=== PATIENT | male | born 1935 | race Caucasian/White ===

== ENCOUNTER 2016-11-14 09:12 | Inpatient (IN) | payer MEDICARE ==
--- NOTE | ~2016-11-14 | DS ---
Discharge Summary [facility] [address] [facility] [place]. [address] NAME: SHAHZAD PARRISH : 33 STATUS : DIS IN PAT#: [id number] AGE: 81 ADM/REG DATE : 11/14/16 MR#: [id number] REPORT SERV DATE: 11/17/16 DICTATED BY: CORAZON TRUONG DATE: 11/16/16 REPORT STATUS : Draft TRANSCRIBED BY: MODL DATE: 11/16/16 ADMISSION DATE: 11/14/2016 DISCHARGE DATE: 11/16/2016 DISCHARGE DIAGNOSES: 1. Multivessel coronary artery disease with non-ST elevation myocardial infarction, the patient was referred to cardiothoracic surgery group and the patient decided not to have surgery due to high mobility mortality ratio with his current medical conditions. 2. Chronic kidney disease. 3. Chronic obstructive pulmonary disease with current tobacco abuse. 4. Ischemic cardiomyopathy with ejection fraction 25% on this admission evaluation. 5. Diabetes mellitus. CONSULTS: 1. Dr. Parekh. 2. Dr. Mccauley's group. PROCEDURE: Cardiac catheterization showed multivessel disease. HISTORY OF PRESENT ILLNESS: This is an 81-year-old male patient, who has not been followed by physicians for a long time after he had one stent done in the past, came to the hospital with chest pain. Please see dictated H and P done by Dr. Paige. Please see dictated consultation report from Dr. Parekh. HOSPITAL COURSE: The patient was admitted to the hospital with chest pain at [facility], seen by Dr. Parekh. Was thought the need to have cardiac catheterization. He was transferred to [facility] to get a cardiac catheterization, which showed three-vessel disease. The patient was seen by Dr. Mccauley' group and discussed with other comorbidities. He has a high mortality about 55% and the patient is understanding clearly about his condition and he decided not to proceed with surgery at this time. It was explained to the family, , and son in the room regarding his decision and preop evaluation. They all voiced understanding and spent more than 35 minutes about education time with this new medical treatment. DISCHARGE MEDICATIONS: Aspirin 81 mg once a day, Lipitor 40 mg once at bedtime, Glucotrol 2.5 mg twice a day, [place] as needed, Lopressor 12.5 mg twice a day, furosemide 40 mg once a day, nitro as needed. DISPOSITION: The patient is discharged to home in stable condition. TIME SPENT: More than 30 minutes. DICTATED BY: Corazon Truong M.D. Discharge Summary [address] [place] [address] NAME: SHAHZAD PARRISH : 33 STATUS : DIS IN PAT#: [id number] AGE: 81 ADM/REG DATE : 11/14/16 MR#: [id number] REPORT SERV DATE: 11/17/16 DICTATED BY: CORAZON TRUONG DATE: 11/16/16 REPORT STATUS : Draft TRANSCRIBED BY: BENEDICTO DATE: 11/16/16 EKPaulette/BENEDICTO Corazon Truong M.D. / [id number] CC: Kadeem Matta D.O.
--- NOTE | ~2016-11-14 | CN ---
Consultation Report [facility] [address] [place]. [address] NAME: SHAHZAD PARRISH : 33 STATUS : ADM IN PAT#: [id number] AGE: 81 ADM/REG DATE : 11/14/16 MR#: [id number] REPORT SERV DATE: 11/15/16 DICTATED BY: ROSE MCCAULEY DATE: 11/15/16 REPORT STATUS : Draft TRANSCRIBED BY: MODL DATE: 11/15/16 CONSULTATION DATE OF CONSULTATION: REASON FOR REFERRAL: Recent qyp-LK-vzyyxkxfj myocardial infarction in the context of severe three-vessel flow-limiting coronary artery disease. CHIEF COMPLAINT: "I had chest pain for about four days". HISTORY OF PRESENT ILLNESS: This is an 81-year-old gentleman, diabetic, smoker who continues to smoke up until hospitalization. He has known history of coronary artery disease, with prior bxa-IM-mskqxmleg myocardial infarction in 2010. He has been followed by Dr. Parekh at [facility]. Recently, the patient re-presented to the emergency department with four-day history of chest discomfort that was waxing and waning. He described this as heartburn. He took some yrod-tdp-ehiuodh medications including omeprazole and he also took some nitroglycerin which he said relieved his pain. He came to the emergency department, was found to have elevated troponin I as well as abnormal EKG. He was transferred to [facility] and underwent coronary arteriogram yesterday demonstrating severe three vessel flow-limiting coronary artery disease. We are asked to see for consideration of urgent coronary artery bypass grafting and this was discussed with the patient yesterday evening. PRIOR MEDICAL HISTORY: Significant for peripheral arterial disease, hypertension, type 2 non insulin-dependent diabetes mellitus, chronic kidney disease stage III, COPD, previous myocardial infarction in 2010, ischemic cardiomyopathy and systolic heart failure, ejection fraction of 31% on last echo in 2013. PRIOR SURGICAL HISTORY: Significant for bilateral cataract excision and lower extremity stenting. ALLERGIES: NONE KNOWN. MEDICATIONS AT HOME: Include vitamin C, aspirin, vitamin D, hydrocodone, NicoDerm transdermal, Co Q10. SOCIAL HISTORY: He is . He is a smoker of up to a pack per day for over sixty years, currently smokes about four or five cigarettes a day. 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 FAMILY HISTORY: Significant for coronary artery disease and hypertension. REVIEW OF SYSTEMS: In general, negative for any recent weight change, fevers, chills, night sweats, or malaise. Consultation Report [facility] [place]. [address] NAME: SHAHZAD PARRISH : 33 STATUS : ADM IN [facility]#: [id number] AGE: 81 ADM/REG DATE : 11/14/16 MR#: [id number] REPORT SERV DATE: 11/15/16 DICTATED BY: ROSE MCCAULEY DATE: 11/15/16 REPORT STATUS : Draft TRANSCRIBED BY: BENEDICTO DATE: 11/15/16 He denies any paroxysmal nocturnal dyspnea. He denies any orthopnea. Denies any history of stroke or TIA, denies any history of free bleeding, blood clots, or abnormal bruising. Otherwise, negative or as above. PHYSICAL EXAMINATION: GENERAL: This is a pleasant elderly gentleman, in no acute distress. Height is 182.88 cm, weight 90.71 kg. VITAL SIGNS: Blood pressure 129/70, temperature 96.6, pulse 73, respirations 16, saturation 96%. HEENT: Normocephalic, atraumatic. Pupils are equal, round, and reactive to light and accommodation. Sclerae clear, conjunctivae pink. Oral buccal mucosa pink and moist. Mallampati class 3 airway. NECK: Supple. No restricted range of motion. No carotid bruits, no jugular venous distention. CHEST: He has bibasilar crackles posteriorly, no use of accessory muscles, no chest wall tenderness. No deformity. CV: Regular rate and rhythm without murmur or rub. He has palpable and symmetric central and peripheral pulses, no clubbing, no cyanosis. No edema. ABDOMEN: Soft, obese, nontender with normoactive bowel sounds. No hepatosplenomegaly. /RECTAL: Declined. MUSCULOSKELETAL: Mild thoracic kyphosis. No scoliosis. NEUROLOGIC: He is alert, oriented, seems to have some difficulty with recent memory. Affect is appropriate. He tells me that, he is planning on being discharged. SKIN, HAIR, AND NAILS: No lesions, masses, or rashes. DATA: His coronary arteriogram which I reviewed, showing severe three-vessel flow-limiting coronary artery disease. His EKG shows sinus rhythm with first-degree AV block, left axis deviation, and anteroseptal infarct. There is also ST-T wave abnormality in the lateral leads. Echocardiogram is currently pending, previous echocardiogram from 2014 was reviewed. His labs, sodium was 142, potassium 4.0, chloride 107, CO2 of 27, BUN 22, creatinine 1.58. Troponin I was 0.30. Hemoglobin A1c was 7.7. CBC was significant only for some leukocytosis of 13,000, otherwise unremarkable. IMPRESSION: Recent uth-BU-snqodchpk myocardial infarction in an 81-year-old gentleman with 3 vessel coronary artery disease. We were asked to see and evaluate for possible coronary artery bypass grafting and this was discussed with the patient yesterday evening. We talked about the surgery, usual perioperative course, indications, benefits, and serious risks which include things like bleeding, infection, pneumonia, blood transfusions, damage to the kidneys including kidney failure and dialysis, damage to the liver, the lungs, heart attack, stroke, abnormal heart rhythm, deep sternal infection, mediastinitis, need for pacemaker, and even . His database is currently incomplete, but using available data, his risk of mortality or morbidity and mortality were quantified using Society of Thoracic Surgeons database at mortality risk of 8.84%, morbidity or mortality of 42.73%, and this was discussed with the patient. These place him in a high risk category for coronary artery bypass grafting obviously. The patient tells me that he is considering this, but may elect Consultation Report [address] [place]. [address] NAME: SHAHZAD PARRISH : 33 STATUS : ADM IN [facility]#: [id number] AGE: 81 ADM/REG DATE : 11/14/16 MR#: [id number] REPORT SERV DATE: 11/15/16 DICTATED BY: ROSE MCCAULEY DATE: 11/15/16 REPORT STATUS : Draft TRANSCRIBED BY: MODL DATE: 11/15/16 not to have surgery. We will follow with you. Would go ahead and obtain carotid ultrasound as well as bedside spirometry to further evaluate for any significant carotid disease and evaluate his pulmonary function. We will follow with you and we appreciate the opportunity to participate in his care. DICTATED BY: Richard Rosenberg/BENEDICTO Rose Mccauley M.D. / [id number] CC: Corazon Truong M.D.
[~2016-11-14 09:12] MED LIST: ASAB PO; CO-Q-10 OTC PO; COREG6 PO; GLUCOTROL5 PO; HABIT14 TOP; HALF81 PO; KLOR-CON 1010 MEQ PO; L20 PO; LIPITOR40 PO; LORT7 PO; NO HOME MEDS; NORCO1 TA2 PO; NTG150 SL; PLAVIX PO; PRIN5 PO; STOOL SOFTEN240 MG PO; VITAMIN D1000 UNI1 PO; VITC500 PO
[2016-11-15 04:35] LABS: BASOPHILS 0.3 %; BASOPHILS ABSOLUTE 0.03 10/3/uL (0.0-0.16); EOSINOPHILS 2.4 %; EOSINOPHILS ABSOLUTE 0.27 10/3/uL (0.0-0.53); HEMATOCRIT 43.6 % (40.0-51.0); HEMOGLOBIN 15.1 g/dL (13.6-17.8); IMMATURE GRANULOCYTES 0.3 %; IMMATURE GRANULOCYTES ABSOLUTE 0.03 10/3/uL (0.0-0.11); LYMPHOCYTES 34.7 %; MEAN CORPUS HGB CONC 34.6 g/dL (32.0-36.0); MEAN CORPUSCULAR VOLUME 92.4 fL (80-100); MEAN PLATELET VOLUME 11.2 fL (9.2-13.0); MONOCYTES ABSOLUTE 1.35 10/3/uL (0.21-1.20); NEUTROPHILS 50.3 %; NEUTROPHILS ABSOLUTE 5.67 10/3/uL (2.02-8.40); PLATELET COUNT 186 10/3/uL (150-400); RED CELL COUNT 4.72 10/6/uL (4.7-6.1); WHITE BLOOD CELLS 11.3 10/3/uL (4.5-10.5)
[2016-11-15 04:39] LABS: MANUAL DIFF NO %
[2016-11-15 04:51] LABS: BUN (BLOOD UREA NITROGEN) 20 MG/DL (6-23); CALCIUM, SERUM 8.1 MG/DL (8.5-10.4); CHLORIDE, SERUM 112 MMOL/L (96-112); CO2 (CARBON DIOXIDE) 24 MMOL/L (24-34); CREATININE 1.31 MG/DL (0.70-1.30); GFR AFRICAN AMERICAN 58 ML/MIN (>=60); GFR NON AFRICAN AMERICAN 50 ML/MIN (>=60); GLUCOSE, SERUM 146 MG/DL (60-99); POTASSIUM, SERUM 3.9 MMOL/L (3.5-5.3); SODIUM, SERUM 142 MMOL/L (135-148)
[2016-11-16 05:27] LABS: BASOPHILS 0.2 %; BASOPHILS ABSOLUTE 0.02 10/3/uL (0.0-0.16); EOSINOPHILS 3.2 %; EOSINOPHILS ABSOLUTE 0.33 10/3/uL (0.0-0.53); HEMATOCRIT 42.5 % (40.0-51.0); HEMOGLOBIN 14.6 g/dL (13.6-17.8); IMMATURE GRANULOCYTES 0.3 %; IMMATURE GRANULOCYTES ABSOLUTE 0.03 10/3/uL (0.0-0.11); LYMPHOCYTES 37.9 %; LYMPHOCYTES ABSOLUTE 3.91 10/3/uL (0.67-4.30); MEAN CORPUS HGB CONC 34.4 g/dL (32.0-36.0); MEAN CORPUSCULAR HEMOGLOB 31.7 pg (26.0-34.0); MEAN CORPUSCULAR VOLUME 92.4 fL (80-100); MEAN PLATELET VOLUME 11.1 fL (9.2-13.0); MONOCYTES ABSOLUTE 1.24 10/3/uL (0.21-1.20); NEUTROPHILS 46.4 %; NEUTROPHILS ABSOLUTE 4.79 10/3/uL (2.02-8.40); PLATELET COUNT 178 10/3/uL (150-400); WHITE BLOOD CELLS 10.3 10/3/uL (4.5-10.5)
[2016-11-16 05:28] LABS: MANUAL DIFF NO %
[2016-11-16 05:43] LABS: BUN (BLOOD UREA NITROGEN) 22 MG/DL (6-23); CALCIUM, SERUM 7.9 MG/DL (8.5-10.4); CHLORIDE, SERUM 112 MMOL/L (96-112); CO2 (CARBON DIOXIDE) 22 MMOL/L (24-34); CREATININE 1.38 MG/DL (0.70-1.30); GFR AFRICAN AMERICAN 54 ML/MIN (>=60); GFR NON AFRICAN AMERICAN 47 ML/MIN (>=60); GLUCOSE, SERUM 186 MG/DL (60-99); POTASSIUM, SERUM 3.8 MMOL/L (3.5-5.3); SODIUM, SERUM 142 MMOL/L (135-148)
[2016-11-16] MEDS ORDERED: LIPITOR40 PO (12:19)
[2016-11-16] MEDS ORDERED: GLUCOTROL5 PO (12:20)
[2016-11-16] MEDS ORDERED: L40 PO (12:21)
[2016-11-16] MEDS ORDERED: LOP25 PO (12:21)
[2016-11-16] MEDS ORDERED: KLOR-CON M2020 MEQ PO (12:22)
== END 2016-11-16 19:20 | disposition home or self-care (01) | DRG 281 ==
LOC: CORLMH 09:12 → SSU1 10:13 → 5NO 21:40
PROVIDERS: Internal Medicine; Nurse Practitioner Family
PROC: 4A023N7 Measurement of Cardiac Sampling and Pressure, Left Heart, Percutaneous Approach (ICD-10-PCS; principal; 2016-11-14)
PROC: B2111ZZ Fluoroscopy of Multiple Coronary Arteries using Low Osmolar Contrast (ICD-10-PCS; 2016-11-14)
PROC: B2151ZZ Fluoroscopy of Left Heart using Low Osmolar Contrast (ICD-10-PCS; 2016-11-14)
DX: I21.4 Non-ST elevation (NSTEMI) myocardial infarction (principal); I50.22 Chronic systolic (congestive) heart failure; E11.22 Type 2 diabetes mellitus with diabetic chronic kidney disease; J44.9 Chronic obstructive pulmonary disease, unspecified; I25.10 Atherosclerotic heart disease of native coronary artery without angina pectoris; F17.210 Nicotine dependence, cigarettes, uncomplicated; I25.5 Ischemic cardiomyopathy; Z95.5 Presence of coronary angioplasty implant and graft; I25.2 Old myocardial infarction; N18.3 Chronic kidney disease, stage 3 (moderate); I34.0 Nonrheumatic mitral (valve) insufficiency; E11.649 Type 2 diabetes mellitus with hypoglycemia without coma; I73.9 Peripheral vascular disease, unspecified; Z79.82 Long term (current) use of aspirin; Z79.899 Other long term (current) drug therapy
CPT/HCPCS: 71010; 80048; 82962; 83036; 83735; 84484; 85025; 85347; 85610; 85730; 93005; 93458; 93880; 94640; 99152; 99153; 99285; A9270-GY; C1769; C1894; C8929; G0378; J2250; J3010; Q9957; Q9967

== ENCOUNTER 2016-11-28 08:38 | Inpatient (IN) | payer MEDICARE ==
--- NOTE | ~2016-11-28 | HP ---
History And Physical [facility] [address] [place]. [address] NAME: SHAHZAD PRITCHARD : 33 STATUS : ADM IN PAT#: [id number] AGE: 81 ADM/REG DATE : 11/28/16 MR#: [id number] REPORT SERV DATE: 11/28/16 DICTATED BY: DINORA TRUONG DATE: 11/28/16 REPORT STATUS : Draft TRANSCRIBED BY: MODL DATE: 11/28/16 DATE OF ADMISSION: 11/28/2016 CARDIOLOGY ADMISSION HISTORY AND PHYSICAL IDENTIFYING DATA: The patient is an 81-year-old man with known ischemic cardiomyopathy and chronic angina. CHIEF COMPLAINT: Substernal chest pain of one to two days' duration. HISTORY OF PRESENT ILLNESS: Mr. Pritchard is a pleasant, 81-year-old man who is previously followed by Dr. Parekh. The patient has a long history of ischemic cardiomyopathy. The patient apparently underwent cardiac catheterization in the year 2011. At that time, he had severe disease of the right coronary artery. This was apparently not re-vascularizable by percutaneous methods. The patient was treated medically. He presented back in 10/2016 with a fmf-DM-tfamwba elevation myocardial infarction. The patient's ejection fraction at that time was found to be approximately 25%. He was taken for repeat cardiac catheterization. The patient was found to have three-vessel coronary artery disease, with angiographically significant lesions involving the mid left anterior descending, proximal left circumflex and obtuse marginal branch, and severe disease of the mid right coronary artery, with an appearance of extreme calcification. Due to the patient's ischemic cardiomyopathy, coronary artery bypass grafting surgery was recommended. The patient was evaluated by the Thoracic Surgery Service. Due to the patient's age, cardiomyopathy, acute myocardial infarction, his STS mortality risk was estimated at 8.84%. The patient had a morbidity risk of 42.7%. Because of the high risk of surgery, the patient declined coronary artery bypass grafting. The plan was for the patient to be discharged home on medical therapy, and to have follow up in Cardiology Clinic to consider multivessel percutaneous coronary intervention. The patient reports that approximately two days ago, he began to experience worsening substernal chest pain. Typically, this is relieved with one to two sublingual nitroglycerin. However, last night, the patient was having to take nitroglycerin about every hour or two. He continued to have chest pain this morning, and therefore, presented to [facility] Emergency Room for further evaluation. At this time, the patient is chest pain-free. His 1st set of cardiac biomarkers is normal. PAST MEDICAL HISTORY: 1. Coronary artery disease/ischemic cardiomyopathy as noted above. 2. Type 2 qak-lpbvhpl-xaomvylxd diabetes. 3. Peripheral arterial disease. 4. Hypertension. 5. Stage 3 chronic kidney disease. 6. Chronic obstructive pulmonary disease. History And Physical [address] [address] NAME: SHAHZAD PRITCHARD : 33 STATUS : ADM IN PAT#: [id number] AGE: 81 ADM/REG DATE : 11/28/16 MR#: [id number] REPORT SERV DATE: 11/28/16 DICTATED BY: DINORA TRUONG DATE: 11/28/16 REPORT STATUS : Draft TRANSCRIBED BY: BENEDICTO DATE: 11/28/16 PAST SURGICAL HISTORY: Significant for bilateral cataract extraction and lower extremity stenting. FAMILY HISTORY: Significant for coronary heart disease and hypertension. SOCIAL HISTORY: The patient is . He is a one pack per day smoker x60 years, and is currently trying to quit, with the use of four of five cigarettes per day. He is retired and has no history of alcohol or drug use. ALLERGIES: THE PATIENT HAS NO KNOWN MEDICATION ALLERGIES. HOME MEDICATIONS: 1. Vitamin C 2 g p.o. daily. 2. Aspirin 81 mg p.o. daily. 3. Lipitor 40 mg p.o. at bedtime. 4. Vitamin D 5000 units p.o. daily. 5. Lasix 40 mg p.o. q. Saturday, Saturday, and Saturday. 6. Glipizide 2.5 mg p.o. twice daily. 7. Hydrocodone/acetaminophen 7.5/325 mg half tablet three times daily as needed for pain. 8. Metoprolol tartrate 12.5 mg p.o. twice daily. 9. Nicotine patch 14 mg at bedtime. 10.Sublingual nitroglycerin 0.4 mg as needed for chest pain. 11.Potassium chloride 20 mEq p.o. q. Saturday, Saturday, and Saturday. 12.Coenzyme Q10 one tablet daily. 13.Selenium tablets one daily. 14.Qzie-mwt-mjytpdc stool softener one daily. REVIEW OF SYSTEMS: A complete 12-system review was performed. This is noncontributory except for the pertinent positives and negatives noted in the history of present illness as above. PHYSICAL EXAMINATION: VITAL SIGNS: Temperature is 97.6 degrees Fahrenheit, blood pressure is 144/62 mmHg, oxygen saturation is 95%, respirations 18, heart rate is 68 beats per minute and regular. GENERAL: The patient is an elderly white man in no acute distress. EYES: PERRL, EOMI, clear conjunctiva. HEAD/MNT: NCAT with moist mucous membranes and grossly normal hard and soft palate. NECK: Supple with no obvious thyromegaly or lymphadenopathy CARDIOVASCULAR: There is a regular rhythm with normal S1 and physiologically split S2. No significant murmurs, rubs or gallops noted. PMI-normal location and character. Normal jugular venous pressure. No carotid bruits noted bilaterally. PULMONARY: Clear to auscultation bilaterally, no wheezing, rales or rhonchi noted. No dullness to percussion. Non-labored. Slightly decreased air movement globally. ABDOMINAL: Soft, non-tender, non-distended with no hepatosplenomegaly noted. EXTREMITIES: There is 1+ ankle edema bilaterally. No clubbing, cyanosis. MUSCULOSKELETAL: Grossly normal strength and range of motion in all extremities History And Physical [address] [address] NAME: SHAHZAD PRITCHARD : 33 STATUS : ADM [facility]#: [id number] AGE: 81 ADM/REG DATE : 11/28/16 MR#: [id number] REPORT SERV DATE: 11/28/16 DICTATED BY: DINORA TRUONG DATE: 11/28/16 REPORT STATUS : Draft TRANSCRIBED BY: BENEDICTO DATE: 11/28/16 INTEGUMENTARY: Skin appears intact with no bruises, wounds or active lesions noted NEURO/PSYC: Alert and oriented x3, with no dysarthria, facial droop or lateralizing weakness noted. 12-LEAD EKG: The patient's 12-lead EKG shows sinus bradycardia with an incomplete left bundle-branch block pattern and poor anterior R-wave progression in the precordial leads with nonspecific ST/T-wave abnormalities. Cannot exclude inferior myocardial infarction of indeterminate age. LABORATORY DATA: Chemistry shows a sodium of 138, potassium 4.0, chloride is 106, CO2 24, BUN 30, creatinine is 1.38, glucose 169, calcium 8.5, magnesium 2.1, troponin I is less than 0.02. Cell count show a white blood cell count of 11.2, hemoglobin 15.8, hematocrit 45, platelets 201. INR is 1.1. The patient's chest x-ray shows no acute cardiopulmonary process. ASSESSMENT AND PLAN: 1. Unstable angina: We will increase metoprolol to 25 mg p.o. daily. The patient will continue on his other cardiovascular medications. Given the presence of ischemic cardiomyopathy and chronic systolic heart failure, I feel the patient should be revascularized if possible. I have discussed reconsideration of a surgical consult with the patient. He reports that given the high risk of morbidity and mortality, that he would not be willing to proceed with coronary artery bypass grafting surgery. I have discussed the possibility of multivessel stenting with the patient. Both he and his feel that they would prefer to proceed with multivessel stenting. I feel this would be feasible, and would be strongly preferred over medical therapy alone given the severity of the patient's multivessel coronary disease. The patient will most likely require rotational atherectomy of his mid right coronary artery. As I will be unavailable tomorrow, I will tentatively schedule this for Saturday11/30/2016. We will proceed with iFR-guided PCI of the left anterior descending and left circumflex coronary arteries as appropriate. I have explained the relatively high-risk nature of rotational atherectomy with the patient and his . They are willing to proceed, and understand the risks, which would include coronary perforation and need for emergency surgery. 2. Chronic systolic heart failure: The patient appears grossly euvolemic today. Again, we will proceed with percutaneous revascularization on Saturday if possible. The patient has chronic kidney disease, and will not start an ZE inhibitor at this time given the need for iodine contrast. However, should the patient's renal function remains stable, we will consider starting low-dose lisinopril if tolerated. 3. Type 2 diabetes: The patient will be started on sliding scale insulin. 4. Tobacco abuse: The patient will be strongly encouraged to discontinue smoking. BRYANNA/BENEDICTO Dinora Campa History And Physical [address] [place]. [address] NAME: SHAHZAD PRITCHARD : 33 STATUS : ADM IN [facility]#: [id number] AGE: 81 ADM/REG DATE : 11/28/16 MR#: [id number] REPORT SERV DATE: 11/28/16 DICTATED BY: DINORA TRUONG DATE: 11/28/16 REPORT STATUS : Draft TRANSCRIBED BY: BENEDICTO DATE: 11/28/16 MD Edward / [id number] CC: MD Tabitha Bradford D.O.
--- NOTE | ~2016-11-28 | EGD ---
EGD REPORT [facility] [address] [place]. [address] NAME: RODRIGUEZ PRITCHARD : 33 STATUS : ADM IN PAT#: [id number] AGE: 81 ADM/REG DATE : 11/28/16 MR#: [id number] REPORT SERV DATE: 12/03/16 DICTATED BY: RODRIGUEZ DANIELS DATE: 12/03/16 REPORT STATUS : Draft TRANSCRIBED BY: [facility] DATE: 12/03/16 Endoscopy Center Patient Name: Rodriguez Pritchard Date of : 1935 Attending MD: RODRIGUEZ DANIELS MD Procedure Date No Time: 12/03/2016 Procedure: Colonoscopy Indications: Hematochezia Referring MD: DAYDAY THRASHER Medicines: Monitored Anesthesia Care Complications: No immediate complications. Estimated blood loss: None. Procedure: Pre-Anesthesia Assessment: - ASA Grade Assessment: IV - A patient with severe systemic disease that is a constant threat to life. After I obtained informed consent, the scope was passed under direct vision. Throughout the procedure, the patient's blood pressure, pulse, and oxygen saturations were monitored continuously. The CF [id number] was introduced through the anus and advanced to the cecum, identified by appendiceal orifice and ileocecal valve. The colonoscopy was performed without difficulty. The patient tolerated the procedure well. The quality of the bowel preparation was adequate. Findings: The perianal exam was abnormal. Findings include internal hemorrhoids that prolapse with straining, but require manual replacement into the anal canal (Grade III). The superficial mucosa appeared to be ulcerated, likely secondary to irritation from frequent prolapse. THis was likely the source of rectal bleeding. Many flat and semi-sessile, non-bleeding polyps were found in the sigmoid colon, in the descending colon, in the transverse colon and in the ascending colon. The polyps were 4 to 15 mm in size. Polypectomy was not attempted due to the patient taking anticoagulation medication. Multiple medium-sized patchy angiodysplastic lesions without bleeding were found in the cecum and at the ileocecal valve. Destruction of the lesions were not attempted due to the patient taking anticoagulation medication. Multiple medium-mouthed diverticula were found in the entire colon. The exam was otherwise without abnormality. Impression: - Internal hemorrhoids that prolapse with straining, but require manual replacement into the anal canal (Grade III) found on perianal exam. Likely the source of hematochezia. EGD REPORT [address] [address] NAME: RODRIGUEZ PRITCHARD : 31 STATUS : ADM IN [facility]#: [id number] AGE: 81 ADM/REG DATE : 11/28/16 MR#: [id number] REPORT SERV DATE: 12/03/16 DICTATED BY: RODRIGUEZ DANIELS DATE: 12/03/16 REPORT STATUS : Draft TRANSCRIBED BY: [employer] DATE: 12/03/16 - Many 4 to 15 mm, non-bleeding polyps in the sigmoid colon, in the descending colon, in the transverse colon and in the ascending colon. Resection not attempted. - Multiple non-bleeding colonic angiodysplastic lesions. Not cauterized due to anticoagulant use. - Diverticulosis in the entire examined colon. - The examination was otherwise normal. Recommendation: - Discharge patient to home (ambulatory). - Use fiber, for example Citrucel, Fibercon, Konsyl or Metamucil to reduce bleeding from hemorrhoids. - Repeat colonoscopy in 3 months for retreatment once able to safely hold Brillenta for 5-7 days. - Return to GI clinic in 3 months. Procedure Code(s): --- Professional --- 71016, Colonoscopy, flexible, proximal to splenic flexure; diagnostic, with or without collection of specimen(s) by brushing or washing, with or without colon decompression (separate procedure) Diagnosis Code(s): --- Professional --- K64.2, Third degree hemorrhoids K57.30, Diverticulosis of large intestine without perforation or abscess without bleeding D12.5, Benign neoplasm of sigmoid colon D12.4, Benign neoplasm of descending colon D12.3, Benign neoplasm of transverse colon D12.2, Benign neoplasm of ascending colon K55.20, Angiodysplasia of colon without hemorrhage K92.1, Melena CPT copyright 2013 [employer]. All rights reserved. The codes documented in this report are preliminary and upon change control coordinator review may be revised to meet current compliance requirements. Rodriguez Daniels MD RODRIGUEZ DANIELS MD 12/03/2016 1:25 PM This report has been signed electronically. Number of Addenda: 0 Note Initiated On: 12/03/2016 11:57 AM Scope Withdrawal Time 0 hours 11 minutes 57 seconds EGD REPORT [facility] [address] [address] NAME: RODRIGUEZ PRITCHARD : 31 STATUS : ADM IN [facility]#: [id number] AGE: 81 ADM/REG DATE : 11/28/16 MR#: [id number] REPORT SERV DATE: 12/03/16 DICTATED BY: RODRIGUEZ DANIELS DATE: 12/03/16 REPORT STATUS : Draft TRANSCRIBED BY: [email or web address] DATE: 12/03/16 [place] [id number]
--- NOTE | ~2016-11-28 | DS ---
Discharge Summary [facility] [address] [place]. [address] NAME: RODRIGUEZ PARRISH : 33 STATUS : DIS IN PAT#: [id number] AGE: 81 ADM/REG DATE : 11/28/16 MR#: [id number] REPORT SERV DATE: 12/15/16 DICTATED BY: DINORA LEON DATE: 12/14/16 REPORT STATUS : Draft TRANSCRIBED BY: BENEDICTO DATE: 12/14/16 Data Collection from hospitalization DISCHARGE DIAGNOSES: 1. Ischemic cardiomyopathy. 2. Coronary artery disease, status post drug-eluting stent to the left anterior descending artery, status atherectomy drug-eluting stent - MRCA. 3. Type 2 cly-frqxnut-flofzmeet diabetes mellitus. 4. Hypertension. 5. Peripheral arterial disease. 6. Stage III chronic kidney disease. 7. Chronic obstructive pulmonary disease. 8. History of qci-SZ-ksztjcpyy myocardial infarction. CONSULTATIONS: García Casper M.D. PROCEDURES PERFORMED: 1. Colonoscopy on 12/03/2016. 2. Upper GI endoscopy on 12/03/2016. 3. Cardiac catheterization and percutaneous coronary intervention on 11/30/2016. MEDICATIONS: Vitamin C 2000 mg daily; Halfprin 81 mg daily; Lipitor 40 mg at bedtime; vitamin D 5000 units daily; Plavix 75 mg daily and 300 mg in the evening as instructed; Lasix 40 mg on Mondays, Wednesdays, Fridays as instructed; Glucotrol 2.5 mg before breakfast and supper; [place] 7.5/325 half tablet three times a day as needed; Prinivil 5 mg daily; Lopressor 25 mg twice a day; Habitrol 14 mg topically at bedtime; Nitrostat 0.4 mg sublingually as needed; Protonix 40 mg daily; Klor-Con 20 mEq on Mondays, Wednesdays, and Fridays; CoQ10 one tablet daily; selenium one tablet once daily, and stool softener one capsule at bedtime. CONDITION AT DISCHARGE: Stable. DISPOSITION: The patient was discharged home on a low-cholesterol, 1800-calorie diabetic diet with no concentrated carbohydrates and activities as instructed. He would follow up with me on 12/10/2016. He would follow up with his primary care physician as needed. He would have an outpatient labs performed on 12/07/2016. HOSPITAL COURSE: This is an 81-year-old man who has a long history of ischemic cardiomyopathy. The patient apparently underwent a cardiac catheterization in 2011. At that time, he had severe disease of the right coronary artery, this apparently was not revascularizable by percutaneous methods. He had been treated medically. He presented back in October of 2016 with pwh-VS-pmwbcpe elevation myocardial infarction. At that time, the patient's ejection fraction was found to be approximately 25%. Repeat cardiac catheterization revealed three-vessel coronary artery disease with angiographically significant lesions involving the mid left anterior descending, proximal left circumflex and obtuse marginal branch, and severe disease of the mid right coronary artery with the appearance of extreme calcifications. Due to the patient ischemic cardiomyopathy, coronary artery bypass grafting surgery had been recommended. The patient was evaluated by the Discharge Summary [address] [address] NAME: RODRIGUEZ PARRISH : 33 STATUS : DIS IN PAT#: [id number] AGE: 81 ADM/REG DATE : 11/28/16 MR#: [id number] REPORT SERV DATE: 12/15/16 DICTATED BY: DINORA LEON DATE: 12/14/16 REPORT STATUS : Draft TRANSCRIBED BY: BENEDICTO DATE: 12/14/16 Thoracic Surgery Service. Because of the high risk of surgery, the patient declined coronary artery bypass grafting. The patient was going to be discharged home on medical therapy and then follow up to consider multi-vessel percutaneous coronary intervention. Two days prior to this admission, he developed worsening substernal chest pain, this is typically relieved with one or two sublingual nitroglycerin. On the night prior to this admission, he was having to take nitroglycerin about every hour or two. He continued to have chest pain and presented to the [facility] Emergency Room. At this time, he was chest pain free and his first set of cardiac biomarkers were normal. He was admitted to the hospital for further evaluation and treatment. Upon admission, his 12-lead EKG showed sinus bradycardia with incomplete left bundle-branch block pattern and poor anterior R-wave progression in the precordial leads with nonspecific ST-T wave abnormalities. Creatinine level was 1.38. White blood cell count was 11.2. Chest x-ray showed no acute cardiopulmonary process. It was felt that the patient should be revascularized if possible. The patient reported due to the high risk he would not be willing to proceed with coronary artery bypass grafting. We discussed the possibility of multivessel stenting. The patient and his felt that they would prefer to proceed with multivessel stenting. I felt that this would be feasible and would be strongly preferred over medical therapy alone given the severity of his multivessel coronary artery disease. The following day, he had a productive cough. He had no dyspnea, chest pain, or edema. The patient said that he has chronic leg pain when he tries to sleep at night. He was in a sinus rhythm with occasional PVCs. He was on a heparin drip. Aspirin and Imdur were continued. On 11/30/2016, he was taken to the cardiac pathology laboratory technologist where he underwent the above mentioned procedure. He tolerated this well, and there were no complications. On 12/01/2016, he felt well. He had no shortness of breath or chest pain. He did have several stools, that were heme-positive. White count was 13.4. The next day, he did have some loose dark stools again that morning. His lungs were clear. Brilinta and aspirin were continued. H and H had decreased. He was seen in consultation by Dr. García Casper. The patient had been on heparin, but was then placed on Brilinta. He did have some dark stools. The nurse said he had passed some red stools. A rectal exam revealed maroon stools. He has never had a colonoscopy or EGD. He denied any use of nonsteroidal antiinflammatory drugs at home. Creatinine level was 1.42. White count 11,200. He was doubtful that this was an ulcer bleed and felt more likely there was a lesion in the colon that was bleeding. IV fluids were being given. GoLYTELY was going to be provided. He was switched to IV Protonix. It was felt that the patient would need to undergo colonoscopy and EGD. On 12/03/2016, the patient was taken to the endoscopic suite by Dr. Rodriguez Hemphill where he underwent an upper GI endoscopy. There were duodenal erosions without bleeding. The examination was, otherwise, normal. A colonoscopy was also performed. There were internal hemorrhoids that prolapsed with straining, but required manual replacement into the anal canal (grade 3). This was likely the source of hematochezia. There were many 4-15 mm nonbleeding polyps in the sigmoid colon, descending colon, transverse colon, and ascending colon. Resection was not attempted. There were multiple nonbleeding colonic angiodysplastic lesions, not cauterized due to anticoagulant use. There was diverticulosis in the entire examined colon. Discharge planning was performed. On 12/04/2016, he has had no further melena. He was in a normal sinus rhythm. Aspirin, Brilinta, and atorvastatin were continued. Lisinopril was started. He said he was feeling much improved. Discharge Discharge Summary [address] [address] NAME: RODRIGUEZ PARRISH : 33 STATUS : DIS IN PAT#: [id number] AGE: 81 ADM/REG DATE : 11/28/16 MR#: [id number] REPORT SERV DATE: 12/15/16 DICTATED BY: DINORA LEON DATE: 12/14/16 REPORT STATUS : Draft TRANSCRIBED BY: BENEDICTO DATE: 12/14/16 instructions were given. Due to his improved and stable condition, he was discharged home with the above-stated instructions. Information collected by: Smita Tony I submit the above information as my discharge summary. TG/BENEDICTO Dinora Leon MD / [id number] CC: MD Tabitha Bradford D.O. Donald Hetzel, M.D.
--- NOTE | ~2016-11-28 | EGD ---
EGD REPORT [facility] [address] [place] [address] NAME: RODRIGUEZ PRITCHARD : 33 STATUS : ADM IN PAT#: [id number] AGE: 81 ADM/REG DATE : 11/28/16 MR#: [id number] REPORT SERV DATE: 12/03/16 DICTATED BY: RODRIGUEZ DANIELS DATE: 12/03/16 REPORT STATUS : Draft [facility]ANSCR[facility]ED [facility]: [facility] DATE: 12/03/16 Endoscopy Center Patient Name: Rodriguez Pritchard Date of : 1935 Attending MD: RODRIGUEZ DANIELS MD Procedure Date No Time: 12/03/2016 Procedure: Upper GI endoscopy Indications: Hematochezia Referring MD: DAYDAY THRASHER Medicines: Monitored Anesthesia Care Complications: No immediate complications. Estimated blood loss: Minimal. Procedure: Pre-Anesthesia Assessment: - ASA Grade Assessment: IV - A patient with severe systemic disease that is a constant threat to life. After obtaining informed consent, the endoscope was passed under direct vision. Throughout the procedure, the patient's blood pressure, pulse, and oxygen saturations were monitored continuously. The GIF [id number] was introduced through the mouth, and advanced to the third part of duodenum. The upper GI endoscopy was accomplished without difficulty. The patient tolerated the procedure well. Findings: The esophagus was normal. The stomach was normal. A few diffuse erosions without bleeding were found in the duodenal bulb. The cardia and gastric fundus were normal on retroflexion. The exam was otherwise without abnormality. Impression: - Duodenal erosions without bleeding. - The examination was otherwise normal. Recommendation: - Perform a colonoscopy today. Procedure Code(s): --- Professional --- 88315, Esophagogastroduodenoscopy, flexible, transoral; diagnostic, including collection of specimen(s) by brushing or washing, when performed (separate procedure) Diagnosis Code(s): --- Professional --- K26.9, Duodenal ulcer, unspecified as acute or chronic, without hemorrhage or perforation K92.1, Melena EGD REPORT [facility] [address] [place] [address] NAME: RODRIGUEZ PRITCHARD : 33 STATUS : ADM [facility]#: [id number] AGE: 81 ADM/REG DATE : 11/28/16 MR#: [id number] REPORT SERV DATE: 12/03/16 DICTATED BY: RODRIGUEZ DANIELS DATE: 12/03/16 REPORT STATUS : Draft TRANSCRIBED BY: [facility] DATE: 12/03/16 CPT copyright 2013 [employer]. All rights reserved. The codes documented in this report are preliminary and upon end lathe operator review may be revised to meet current compliance requirements. Rodriguez Daniels MD RODRIGUEZ DANIELS MD 12/03/2016 12:34 PM This report has been signed electronically. Number of Addenda: 0 Note Initiated On: 12/03/2016 11:59 AM Scope Withdrawal Time 0 hours 0 minutes 0 seconds [address] [facility] [place] [address]
--- NOTE | ~2016-11-28 | CN ---
Consultation Report [facility] [address] [place]. [address] NAME: RODRIGUEZ PRITCHARD : 33 STATUS : ADM IN [facility]#: [id number] AGE: 81 ADM/REG DATE : 11/28/16 MR#: [id number] REPORT SERV DATE: 12/02/16 DICTATED BY: SOFIE CASPER DATE: 12/02/16 REPORT STATUS : Draft TRANSCRIBED BY: MODL DATE: 12/02/16 CONSULTATION DATE OF CONSULTATION: 12/02/2016 HISTORY OF PRESENT ILLNESS: Rodriguez Pritchard is an 81-year-old male, whom we are seeing private, unattached for Hemoccult-positive stools and anemia. This patient was admitted on 11/28/2016 with unstable angina. He was admitted in 10/2016 with a xhq-MH-qmvbnqn elevation OH. He was found on cath to have significant multivessel disease. CABG was recommended, but the patient declined that secondary to he is a high-risk candidate for bypass surgery. The patient now presented on 11/28/2016 with unstable angina. He underwent a heart catheterization on 11/30/2016 with multiple stents placed. He was on heparin, but then placed on Brilinta. The patient had some dark stools yesterday and today from what he said. The nurse told me that he passed red stools. I did a rectal examination and got maroon stool. His hemoglobin on admit was 15.8, 13.4 on 12/01/2016, and today is 12.7. His blood pressure has been stable. He denies any dysphagia, heartburn, or abdominal pain. He has never had a colonoscopy or EGD. He denies use of any nonsteroidal antiinflammatory drugs at home. PAST MEDICAL HISTORY: 1. Coronary artery disease. 2. Ischemic cardiomyopathy. 3. Diabetes mellitus. 4. Peripheral artery disease. 5. Hypertension. 6. Chronic kidney disease. 7. COPD. PAST SURGICAL HISTORY: 1. Cataract surgery. 2. Lower extremity stenting. 3. Cataract surgery. MEDICATIONS: See MAR. Of note, he is on Brilinta, he is on Protonix 40 mg p.o. SOCIAL HISTORY: He is . His is in the room. He does smoke. He does not drink. FAMILY HISTORY: There is no history of any colon cancer or polyps. REVIEW OF SYSTEMS: All system reviewed, negative except that noted in history of present illness. PHYSICAL EXAMINATION: Consultation Report [facility] [address] [place]. [address] NAME: RODRIGUEZ PRITCHARD : 33 STATUS : ADM IN [facility]#: [id number] AGE: 81 ADM/REG DATE : 11/28/16 MR#: [id number] REPORT SERV DATE: 12/02/16 DICTATED BY: SOFIE CASPER DATE: 12/02/16 REPORT STATUS : Draft TRANSCRIBED BY: MODL DATE: 12/02/16 GENERAL: He is oriented x4, in no acute distress. He is afebrile. VITAL SIGNS: Stable. LUNGS: Clear. CARDIOVASCULAR: Revealed no S3, S4. No murmurs. ABDOMEN: Revealed active bowel sounds. Soft, nontender. No mass or organomegaly. RECTAL: Revealed maroon stool. LABORATORY DATA: Hemoglobin as noted above. BUN 27, creatinine 1.42. Stool was Hemoccult positive. White blood cell count 95533, platelet count 210,000. INR 1.1 on 11/28/2016. IMPRESSION: 1. Hematochezia. 2. Status post stents on 11/30/2016. 3. Hemoccult positive stool. I doubt that this is an ulcer bleed. More likely, there is a lesion in the colon that is bleeding. Need to consider colon polyp, cancer, or diverticular. RECOMMENDATIONS: 1. Serial H and H's. 2. IV fluids. 3. GoLYTELY. 4. We will switch the Protonix to IV. I discussed this patient with Dr. Moore. He does not want the Brilinta stopped. He feels he has an acceptable risk for colonoscopy and EGD, which we will schedule for tomorrow. HARRY/BENEDICTO Sofie Casper M.D. / [id number] CC: Narinder Leon MD
[~2016-11-28 08:38] MED LIST changes: +KLOR-CON M2020 MEQ PO; +L40 PO; +LOP25 PO
[2016-11-28 09:16] LABS: BASOPHILS 0.3 %; BASOPHILS ABSOLUTE 0.03 10/3/uL (0.0-0.16); EOSINOPHILS 2.8 %; EOSINOPHILS ABSOLUTE 0.31 10/3/uL (0.0-0.53); ER CBC TAT 0 Hrs 09 Mins; HEMATOCRIT 45.2 % (40.0-51.0); HEMOGLOBIN 15.8 g/dL (13.6-17.8); IMMATURE GRANULOCYTES 0.2 %; IMMATURE GRANULOCYTES ABSOLUTE 0.02 10/3/uL (0.0-0.11); LYMPHOCYTES 24.6 %; LYMPHOCYTES ABSOLUTE 2.76 10/3/uL (0.67-4.30); MANUAL DIFF NO %; MEAN CORPUSCULAR HEMOGLOB 31.9 pg (26.0-34.0); MEAN CORPUSCULAR VOLUME 91.3 fL (80-100); MEAN PLATELET VOLUME 10.6 fL (9.2-13.0); MONOCYTES 12.6 %; MONOCYTES ABSOLUTE 1.41 10/3/uL (0.21-1.20); NEUTROPHILS 59.5 %; NEUTROPHILS ABSOLUTE 6.68 10/3/uL (2.02-8.40); PLATELET COUNT 201 10/3/uL (150-400); RBC DISTRIBUTION WIDTH 12.9 % (12.0-16.0); RED CELL COUNT 4.95 10/6/uL (4.7-6.1); WHITE BLOOD CELLS 11.2 10/3/uL (4.5-10.5)
[2016-11-28 09:29] LABS: BUN (BLOOD UREA NITROGEN) 30 MG/DL (6-23); CALCIUM, SERUM 8.5 MG/DL (8.5-10.4); CHEST PAIN PROFILE TAT 0 Hrs 22 Mins; CHLORIDE, SERUM 106 MMOL/L (96-112); CO2 (CARBON DIOXIDE) 24 MMOL/L (24-34); CREATININE 1.38 MG/DL (0.70-1.30); GFR AFRICAN AMERICAN 54 ML/MIN (>=60); GFR NON AFRICAN AMERICAN 47 ML/MIN (>=60); GLUCOSE, SERUM 169 MG/DL (60-99); SODIUM, SERUM 138 MMOL/L (135-148); TROPONIN I <0.02 NG/ML (<0.05)
[2016-11-28 09:31] LABS: INTERNATIONAL NORMAL RATI 1.1 UNITS (-); PARTIAL THROMBO TIME 27.5 SEC (22.5-37.2); PROTIME (NOT ORD) 14.2 SEC (12.0-14.5)
[2016-11-28] MEDS ORDERED: SELENIUM PO (10:51)
[2016-11-28] MEDS ORDERED: STOOL SOFTENER OTC PO (10:52)
[2016-11-28] MEDS ORDERED: NITROSTAT0.4 MG SL (10:53)
[2016-11-28 15:07] LABS: BASOPHILS 0.2 %; BASOPHILS ABSOLUTE 0.03 10/3/uL (0.0-0.16); EOSINOPHILS 2.5 %; EOSINOPHILS ABSOLUTE 0.33 10/3/uL (0.0-0.53); HEMATOCRIT 48.9 % (40.0-51.0); HEMOGLOBIN 16.7 g/dL (13.6-17.8); IMMATURE GRANULOCYTES 0.2 %; IMMATURE GRANULOCYTES ABSOLUTE 0.03 10/3/uL (0.0-0.11); LYMPHOCYTES 33.3 %; LYMPHOCYTES ABSOLUTE 4.35 10/3/uL (0.67-4.30); MEAN CORPUS HGB CONC 34.2 g/dL (32.0-36.0); MEAN CORPUSCULAR HEMOGLOB 31.4 pg (26.0-34.0); MEAN CORPUSCULAR VOLUME 91.9 fL (80-100); MEAN PLATELET VOLUME 11.3 fL (9.2-13.0); MONOCYTES 11.6 %; MONOCYTES ABSOLUTE 1.51 10/3/uL (0.21-1.20); NEUTROPHILS 52.2 %; NEUTROPHILS ABSOLUTE 6.82 10/3/uL (2.02-8.40); PLATELET COUNT 214 10/3/uL (150-400); RBC DISTRIBUTION WIDTH 13.2 % (12.0-16.0); RED CELL COUNT 5.32 10/6/uL (4.7-6.1); WHITE BLOOD CELLS 13.1 10/3/uL (4.5-10.5)
[2016-11-28 15:10] LABS: MANUAL DIFF NO %
[2016-11-28 15:16] LABS: INTERNATIONAL NORMAL RATI 1.1 UNITS (-); PROTIME (NOT ORD) 14.4 SEC (12.0-14.5)
[2016-11-28 15:20] LABS: PARTIAL THROMBO TIME 128.4 SEC (22.5-37.2)
[2016-11-28 15:24] LABS: BUN (BLOOD UREA NITROGEN) 26 MG/DL (6-23); CALCIUM, SERUM 9.1 MG/DL (8.5-10.4); CHLORIDE, SERUM 105 MMOL/L (96-112); CO2 (CARBON DIOXIDE) 28 MMOL/L (24-34); CREATININE 1.45 MG/DL (0.70-1.30); GFR AFRICAN AMERICAN 51 ML/MIN (>=60); GFR NON AFRICAN AMERICAN 44 ML/MIN (>=60); GLUCOSE, SERUM 163 MG/DL (60-99); POTASSIUM, SERUM 4.4 MMOL/L (3.5-5.3); SODIUM, SERUM 133 MMOL/L (135-148)
[2016-11-29 01:04] LABS: BASOPHILS 0.2 %; BASOPHILS ABSOLUTE 0.03 10/3/uL (0.0-0.16); EOSINOPHILS 2.9 %; EOSINOPHILS ABSOLUTE 0.36 10/3/uL (0.0-0.53); HEMOGLOBIN 14.8 g/dL (13.6-17.8); IMMATURE GRANULOCYTES 0.2 %; IMMATURE GRANULOCYTES ABSOLUTE 0.03 10/3/uL (0.0-0.11); LYMPHOCYTES 39.7 %; LYMPHOCYTES ABSOLUTE 4.93 10/3/uL (0.67-4.30); MEAN CORPUS HGB CONC 34.9 g/dL (32.0-36.0); MEAN CORPUSCULAR HEMOGLOB 31.9 pg (26.0-34.0); MEAN CORPUSCULAR VOLUME 91.4 fL (80-100); MEAN PLATELET VOLUME 11.2 fL (9.2-13.0); MONOCYTES 8.4 %; MONOCYTES ABSOLUTE 1.05 10/3/uL (0.21-1.20); NEUTROPHILS 48.6 %; NEUTROPHILS ABSOLUTE 6.03 10/3/uL (2.02-8.40); PLATELET COUNT 225 10/3/uL (150-400); RED CELL COUNT 4.64 10/6/uL (4.7-6.1); WHITE BLOOD CELLS 12.4 10/3/uL (4.5-10.5)
[2016-11-29 01:08] LABS: HEMATOCRIT 42.4 % (40.0-51.0); MANUAL DIFF NO %
[2016-11-29 01:21] LABS: BUN (BLOOD UREA NITROGEN) 28 MG/DL (6-23); CHLORIDE, SERUM 101 MMOL/L (96-112); CHOL/HDL RATIO(NOT ORDER) 4.5 (0-5); CHOLESTEROL 131 MG/DL (< 200); CO2 (CARBON DIOXIDE) 23 MMOL/L (24-34); CREATININE 1.46 MG/DL (0.70-1.30); GFR AFRICAN AMERICAN 51 ML/MIN (>=60); GFR NON AFRICAN AMERICAN 44 ML/MIN (>=60); GLUCOSE, SERUM 334 MG/DL (60-99); HDL CHOLESTEROL 29 MG/DL (> 39); LDL CHOLESTEROL 55 MG/DL (< 130); NON-HDL CHOLESTEROL 102 MG/DL (< 160); SGPT(ALT) 25 U/L (5-65); SODIUM, SERUM 136 MMOL/L (135-148)
[2016-11-29 01:22] LABS: TRIGLYCERIDE 238 MG/DL (< 150)
[2016-11-30 06:44] LABS: BUN (BLOOD UREA NITROGEN) 28 MG/DL (6-23); CALCIUM, SERUM 8.7 MG/DL (8.5-10.4); CHLORIDE, SERUM 104 MMOL/L (96-112); CHOL/HDL RATIO(NOT ORDER) 3.6 (0-5); CHOLESTEROL 133 MG/DL (< 200); CO2 (CARBON DIOXIDE) 26 MMOL/L (24-34); CREATININE 1.49 MG/DL (0.70-1.30); GFR AFRICAN AMERICAN 50 ML/MIN (>=60); GFR NON AFRICAN AMERICAN 43 ML/MIN (>=60); GLUCOSE, SERUM 133 MG/DL (60-99); HDL CHOLESTEROL 37 MG/DL (> 39); HEMATOCRIT 45.8 % (40.0-51.0); HEMOGLOBIN 15.9 g/dL (13.6-17.8); LDL CHOLESTEROL 68 MG/DL (< 130); MEAN CORPUS HGB CONC 34.7 g/dL (32.0-36.0); MEAN CORPUSCULAR HEMOGLOB 31.7 pg (26.0-34.0); MEAN CORPUSCULAR VOLUME 91.2 fL (80-100); MEAN PLATELET VOLUME 11.8 fL (9.2-13.0); NON-HDL CHOLESTEROL 96 MG/DL (< 160); PLATELET COUNT 218 10/3/uL (150-400); RBC DISTRIBUTION WIDTH 12.9 % (12.0-16.0); RED CELL COUNT 5.02 10/6/uL (4.7-6.1); SODIUM, SERUM 138 MMOL/L (135-148); TRIGLYCERIDE 140 MG/DL (< 150); WHITE BLOOD CELLS 12.1 10/3/uL (4.5-10.5)
[2016-11-30 06:51] LABS: MANUAL DIFF YES %
[2016-11-30 07:22] LABS: BAND NEUTROPHILS 4 %; BASOPHILS 2 %; BASOPHILS ABSOLUTE (CALC) 0.24 10/3/uL (0.0-0.16); EOSINOPHILS 3 %; EOSINOPHILS ABSOLUTE (CALC) 0.36 10/3/uL (0.0-0.53); LYMPHOCYTES 36 %; LYMPHOCYTES ABSOLUTE (CALC) 4.36 10/3/uL (0.67-4.30); MONOCYTES 16 %; MONOCYTES ABSOLUTE (CALC) 1.94 10/3/uL (0.21-1.20); PLATELET ESTIMATE ADQ (ADEQUATE); RBC MORPHOLOGY NORM (NORMAL); SEGMENTED NEUTROPHIL (0) 39 %; TOTAL NUCLEATED CELLS 100
[2016-11-30 14:05] LABS: CPK 40 U/L (0-200); TROPONIN I 0.03 NG/ML (<0.05)
[2016-11-30 14:09] LABS: CK-MB 0.9 NG/ML
[2016-11-30 20:15] LABS: HEMATOCRIT 41.5 % (40.0-51.0); HEMOGLOBIN 14.3 g/dL (13.6-17.8)
[2016-12-01 05:31] LABS: BASOPHILS 0.1 %; BASOPHILS ABSOLUTE 0.02 10/3/uL (0.0-0.16); EOSINOPHILS 1.4 %; EOSINOPHILS ABSOLUTE 0.19 10/3/uL (0.0-0.53); HEMATOCRIT 39.1 % (40.0-51.0); HEMOGLOBIN 13.3 g/dL (13.6-17.8); IMMATURE GRANULOCYTES 0.2 %; IMMATURE GRANULOCYTES ABSOLUTE 0.03 10/3/uL (0.0-0.11); LYMPHOCYTES 16.9 %; LYMPHOCYTES ABSOLUTE 2.27 10/3/uL (0.67-4.30); MEAN CORPUSCULAR HEMOGLOB 30.9 pg (26.0-34.0); MEAN CORPUSCULAR VOLUME 90.9 fL (80-100); MEAN PLATELET VOLUME 10.7 fL (9.2-13.0); MONOCYTES ABSOLUTE 1.34 10/3/uL (0.21-1.20); NEUTROPHILS 71.4 %; NEUTROPHILS ABSOLUTE 9.58 10/3/uL (2.02-8.40); PLATELET COUNT 215 10/3/uL (150-400); RBC DISTRIBUTION WIDTH 13.2 % (12.0-16.0); WHITE BLOOD CELLS 13.4 10/3/uL (4.5-10.5)
[2016-12-01 05:42] LABS: BUN (BLOOD UREA NITROGEN) 28 MG/DL (6-23); CALCIUM, SERUM 8.5 MG/DL (8.5-10.4); CHLORIDE, SERUM 107 MMOL/L (96-112); CO2 (CARBON DIOXIDE) 27 MMOL/L (24-34); CPK 29 U/L (0-200); CREATININE 1.49 MG/DL (0.70-1.30); GFR AFRICAN AMERICAN 50 ML/MIN (>=60); GFR NON AFRICAN AMERICAN 43 ML/MIN (>=60); GLUCOSE, SERUM 146 MG/DL (60-99); SODIUM, SERUM 142 MMOL/L (135-148)
[2016-12-01 05:44] LABS: CK-MB 0.5 NG/ML; POTASSIUM, SERUM 4.9 MMOL/L (3.5-5.3)
[2016-12-01 05:45] LABS: TROPONIN I 0.07 NG/ML (<0.05)
[2016-12-01 05:49] LABS: MANUAL DIFF NO %
[2016-12-01 18:01] LABS: HEMATOCRIT 39.6 % (40.0-51.0); HEMOGLOBIN 13.4 g/dL (13.6-17.8)
[2016-12-02 05:44] LABS: BASOPHILS 0.4 %; BASOPHILS ABSOLUTE 0.04 10/3/uL (0.0-0.16); EOSINOPHILS 4.5 %; EOSINOPHILS ABSOLUTE 0.51 10/3/uL (0.0-0.53); HEMOGLOBIN 12.7 g/dL (13.6-17.8); IMMATURE GRANULOCYTES 0.3 %; IMMATURE GRANULOCYTES ABSOLUTE 0.03 10/3/uL (0.0-0.11); LYMPHOCYTES 25.8 %; MEAN CORPUS HGB CONC 34.3 g/dL (32.0-36.0); MEAN CORPUSCULAR HEMOGLOB 31.1 pg (26.0-34.0); MEAN CORPUSCULAR VOLUME 90.7 fL (80-100); MEAN PLATELET VOLUME 10.9 fL (9.2-13.0); MONOCYTES 14.1 %; MONOCYTES ABSOLUTE 1.59 10/3/uL (0.21-1.20); NEUTROPHILS 54.9 %; NEUTROPHILS ABSOLUTE 6.17 10/3/uL (2.02-8.40); PLATELET COUNT 210 10/3/uL (150-400); RBC DISTRIBUTION WIDTH 13.2 % (12.0-16.0); RED CELL COUNT 4.08 10/6/uL (4.7-6.1); WHITE BLOOD CELLS 11.2 10/3/uL (4.5-10.5)
[2016-12-02 05:45] LABS: MANUAL DIFF NO %
[2016-12-02 05:47] LABS: BUN (BLOOD UREA NITROGEN) 27 MG/DL (6-23); CALCIUM, SERUM 8.8 MG/DL (8.5-10.4); CHLORIDE, SERUM 110 MMOL/L (96-112); CO2 (CARBON DIOXIDE) 25 MMOL/L (24-34); CREATININE 1.42 MG/DL (0.70-1.30); GFR AFRICAN AMERICAN 53 ML/MIN (>=60); GFR NON AFRICAN AMERICAN 45 ML/MIN (>=60); GLUCOSE, SERUM 127 MG/DL (60-99); POTASSIUM, SERUM 4.3 MMOL/L (3.5-5.3); SODIUM, SERUM 143 MMOL/L (135-148)
[2016-12-02 17:53] LABS: HEMATOCRIT 38.1 % (40.0-51.0); HEMOGLOBIN 13.3 g/dL (13.6-17.8)
[2016-12-02 23:00] LABS: HEMATOCRIT 39.2 % (40.0-51.0); HEMOGLOBIN 13.5 g/dL (13.6-17.8)
[2016-12-03 07:04] LABS: BUN (BLOOD UREA NITROGEN) 26 MG/DL (6-23); CALCIUM, SERUM 8.5 MG/DL (8.5-10.4); CHLORIDE, SERUM 110 MMOL/L (96-112); CO2 (CARBON DIOXIDE) 24 MMOL/L (24-34); CREATININE 1.42 MG/DL (0.70-1.30); GFR AFRICAN AMERICAN 53 ML/MIN (>=60); GFR NON AFRICAN AMERICAN 45 ML/MIN (>=60); GLUCOSE, SERUM 125 MG/DL (60-99); POTASSIUM, SERUM 3.8 MMOL/L (3.5-5.3); SODIUM, SERUM 141 MMOL/L (135-148)
[2016-12-03 09:13] LABS: BASOPHILS 0.1 %; BASOPHILS ABSOLUTE 0.01 10/3/uL (0.0-0.16); EOSINOPHILS 3.6 %; EOSINOPHILS ABSOLUTE 0.46 10/3/uL (0.0-0.53); HEMATOCRIT 36.6 % (40.0-51.0); HEMOGLOBIN 12.9 g/dL (13.6-17.8); IMMATURE GRANULOCYTES 0.3 %; IMMATURE GRANULOCYTES ABSOLUTE 0.04 10/3/uL (0.0-0.11); LYMPHOCYTES 19.5 %; LYMPHOCYTES ABSOLUTE 2.48 10/3/uL (0.67-4.30); MEAN CORPUS HGB CONC 35.2 g/dL (32.0-36.0); MEAN CORPUSCULAR HEMOGLOB 31.3 pg (26.0-34.0); MEAN CORPUSCULAR VOLUME 88.8 fL (80-100); MEAN PLATELET VOLUME 10.4 fL (9.2-13.0); MONOCYTES 12.4 %; MONOCYTES ABSOLUTE 1.57 10/3/uL (0.21-1.20); NEUTROPHILS 64.1 %; NEUTROPHILS ABSOLUTE 8.13 10/3/uL (2.02-8.40); PLATELET COUNT 210 10/3/uL (150-400); RED CELL COUNT 4.12 10/6/uL (4.7-6.1); WHITE BLOOD CELLS 12.7 10/3/uL (4.5-10.5)
[2016-12-03 09:15] LABS: MANUAL DIFF NO %
[2016-12-03 14:37] LABS: HEMATOCRIT 38.2 % (40.0-51.0); HEMOGLOBIN 13.1 g/dL (13.6-17.8)
[2016-12-04 04:17] LABS: BASOPHILS 0.2 %; BASOPHILS ABSOLUTE 0.03 10/3/uL (0.0-0.16); EOSINOPHILS 4.6 %; EOSINOPHILS ABSOLUTE 0.58 10/3/uL (0.0-0.53); HEMATOCRIT 35.6 % (40.0-51.0); HEMOGLOBIN 12.2 g/dL (13.6-17.8); IMMATURE GRANULOCYTES 0.3 %; IMMATURE GRANULOCYTES ABSOLUTE 0.04 10/3/uL (0.0-0.11); LYMPHOCYTES 28.3 %; LYMPHOCYTES ABSOLUTE 3.53 10/3/uL (0.67-4.30); MEAN CORPUS HGB CONC 34.3 g/dL (32.0-36.0); MEAN CORPUSCULAR HEMOGLOB 31.3 pg (26.0-34.0); MEAN CORPUSCULAR VOLUME 91.3 fL (80-100); MEAN PLATELET VOLUME 10.8 fL (9.2-13.0); MONOCYTES 14.3 %; MONOCYTES ABSOLUTE 1.79 10/3/uL (0.21-1.20); NEUTROPHILS 52.3 %; NEUTROPHILS ABSOLUTE 6.52 10/3/uL (2.02-8.40); PLATELET COUNT 223 10/3/uL (150-400); RBC DISTRIBUTION WIDTH 13.1 % (12.0-16.0); WHITE BLOOD CELLS 12.5 10/3/uL (4.5-10.5)
[2016-12-04 04:18] LABS: MANUAL DIFF NO %
[2016-12-04 04:29] LABS: BUN (BLOOD UREA NITROGEN) 24 MG/DL (6-23); CHLORIDE, SERUM 108 MMOL/L (96-112); CO2 (CARBON DIOXIDE) 27 MMOL/L (24-34); CREATININE 1.63 MG/DL (0.70-1.30); GFR AFRICAN AMERICAN 44 ML/MIN (>=60); GFR NON AFRICAN AMERICAN 38 ML/MIN (>=60); GLUCOSE, SERUM 114 MG/DL (60-99); POTASSIUM, SERUM 3.6 MMOL/L (3.5-5.3); SODIUM, SERUM 145 MMOL/L (135-148)
[2016-12-04] MEDS ORDERED: ASAB PO (15:42)
[2016-12-04] MEDS ORDERED: PRIN5 PO (15:45)
[2016-12-04] MEDS ORDERED: PROTONIX PO (15:45)
[2016-12-04] MEDS ORDERED: PLAVIX300 MG PO (15:47)
[2016-12-04] MEDS ORDERED: PLAVIX PO (15:48)
== END 2016-12-04 17:10 | disposition home or self-care (01) | DRG 246 ==
LOC: ER 08:38 → 5NO 12:38 → SSU1 11-30 09:32 → 5NO 12-01 12:42
PROVIDERS: Emergency Medicine; Internal Medicine Cardiovascular Disease; Internal Medicine Gastroenterology; Nurse Practitioner Family
PROC: 4A023N7 Measurement of Cardiac Sampling and Pressure, Left Heart, Percutaneous Approach (ICD-10-PCS; principal; 2016-11-30)
PROC: 027135Z Dilation of Coronary Artery, Two Arteries with Two Drug-eluting Intraluminal Devices, Percutaneous Approach (ICD-10-PCS; 2016-11-30)
PROC: X2C0361 Extirpation of Matter from Coronary Artery, One Artery using Orbital Atherectomy Technology, Percutaneous Approach, New Technology Group 1 (ICD-10-PCS; 2016-11-30)
PROC: B2111ZZ Fluoroscopy of Multiple Coronary Arteries using Low Osmolar Contrast (ICD-10-PCS; 2016-11-30)
PROC: B2151ZZ Fluoroscopy of Left Heart using Low Osmolar Contrast (ICD-10-PCS; 2016-11-30)
PROC: 0DJ08ZZ Inspection of Upper Intestinal Tract, Via Natural or Artificial Opening Endoscopic (ICD-10-PCS; 2016-12-03)
PROC: 0DJD8ZZ Inspection of Lower Intestinal Tract, Via Natural or Artificial Opening Endoscopic (ICD-10-PCS; 2016-12-03)
DX: I25.110 Atherosclerotic heart disease of native coronary artery with unstable angina pectoris (principal); I21.4 Non-ST elevation (NSTEMI) myocardial infarction; I50.22 Chronic systolic (congestive) heart failure; I13.0 Hypertensive heart and chronic kidney disease with heart failure and stage 1 through stage 4 chronic kidney disease, or unspecified chronic kidney disease; E11.22 Type 2 diabetes mellitus with diabetic chronic kidney disease; N18.3 Chronic kidney disease, stage 3 (moderate); I25.5 Ischemic cardiomyopathy; F17.210 Nicotine dependence, cigarettes, uncomplicated; I73.9 Peripheral vascular disease, unspecified; Z79.82 Long term (current) use of aspirin; Z79.84 Long term (current) use of oral hypoglycemic drugs; K64.2 Third degree hemorrhoids; D12.5 Benign neoplasm of sigmoid colon; D12.4 Benign neoplasm of descending colon; D12.3 Benign neoplasm of transverse colon; D12.2 Benign neoplasm of ascending colon; K55.20 Angiodysplasia of colon without hemorrhage
CPT/HCPCS: 71010; 80048; 80061; 82272; 82550; 82553; 82962; 83735; 84460; 84484; 85014; 85018; 85025; 85347; 85610; 85730; 93005; 93454; 93571; 93572; 96374; 99152; 99153; 99285; A9270-GY; C1724; C1725; C1769; C1874; C1887; C1894; C9113; C9600; C9602; J0583; J2250; J2370; J3010; Q9967